=== PATIENT | male | born 1990 | race Caucasian/White ===

== ENCOUNTER 2020-04-02 07:53 | Emergency (ER) | payer OTHER ==
[~2020-04-02] VITALS: Ht 177.8 cm; Wt 99.8 kg
--- NOTE | 2020-04-02 08:15 | NUR ---
PATIENT WAS MSE BY DR JJ IN ROOM 05A.
[2020-04-02] MEDS ORDERED: TETRACAINE HCL 0.5% OPHT DROP 2 ML BOTTLE ONE (08:19)
[2020-04-02] MEDS ORDERED: FLUORESCEIN SODIUM 1 MG STRIP ONE (08:19)
[2020-04-02] MEDS ORDERED: TETRACAINE HCL 0.5% OPHT DROP 2 ML BOTTLE OP ONE (08:30)
[2020-04-02] MEDS ORDERED: FLUORESCEIN SODIUM 1 MG STRIP OP ONE (08:30)
--- NOTE | 2020-04-02 08:35 | NUR ---
Patient discharged to home in stable condition. Written and verbal after care instructions given. Patient verbalizes understanding of instructions. Stressed follow up or return to ER for worsening s/s.
[2020-04-02 08:36] VITALS: BP 129/75
== END 2020-04-02 08:37 | disposition home or self-care (01) ==
LOC: ER 07:53
DX: S05.02XA Injury of conjunctiva and corneal abrasion without foreign body, left eye, initial encounter (principal); W22.8XXA Striking against or struck by other objects, initial encounter; Y92.89 Other specified places as the place of occurrence of the external cause
CPT/HCPCS: A4663

== ENCOUNTER 2020-05-14 08:25 | Emergency (ER) | payer OTHER ==
[~2020-05-14] VITALS: Ht 177.8 cm; Wt 99.8 kg
[2020-05-14] MEDS ORDERED: FLUORESCEIN SODIUM 1 MG STRIP OP ONE (08:45)
[2020-05-14] MEDS ORDERED: FLUORESCEIN SODIUM 1 MG STRIP ONE (08:47)
[2020-05-14] MEDS ORDERED: SULFACETAMIDE SOD 10% OPHT DR 15 ML BOTTLE ONE (08:58)
[2020-05-14] MEDS ORDERED: SULFACETAMIDE SOD 10% OPHT DR 15 ML BOTTLE OP ONE (09:00)
== END 2020-05-14 09:00 | disposition home or self-care (01) ==
LOC: ER 08:25
DX: S05.02XA Injury of conjunctiva and corneal abrasion without foreign body, left eye, initial encounter (principal); X58.XXXA Exposure to other specified factors, initial encounter; Y92.89 Other specified places as the place of occurrence of the external cause
CPT/HCPCS: A4663